=== PATIENT | male | born 1995 | race Caucasian/White ===

== ENCOUNTER 2017-04-07 01:29 | Emergency (ER) | payer OTHER ==
[~2017-04-07] VITALS: Ht 190.5 cm; Wt 65.5 kg
[2017-04-07 01:35] VITALS: Ht 190.5 cm; Wt 65.5 kg
[2017-04-07] MEDS: ONDANSETRON 4 MG INJ IV STA (02:51)
[2017-04-07] MEDS ORDERED: ONDA4TAB11 PO (04:41)
--- NOTE | 2017-04-07 04:48 | ERD ---
ER Documentation Chief Complaint Date/Time DATE: 04/07/17 TIME: 04:41 Chief Complaint BIBA x intoxication of hard drinks, vomiting, too HPI This 21-year-old male presents with intoxication after drinking hard liquor including rum. States that he has nausea and has vomited. Denies any pain. Did not fall or hit head. States he is otherwise healthy with no medical problems. ROS All systems reviewed and are negative except as per history of present illness. Medications Home Meds Active Scripts Ondansetron (Zofran Odt) 4 Mg Tab.rapdis, 4 MG PO Q6, #10 Prov:JOSIAH FAJARDO DO 04/07/17 Allergies Allergies: Coded Allergies: No Known Allergy (Unverified , 04/07/17) PMhx/Soc Medical and Surgical Hx: pt denies Medical Hx, pt denies Surgical Hx History of Surgery: No Anesthesia Reaction: No Hx Neurological Disorder: No Hx Respiratory Disorders: No Hx Cardiac Disorders: No Hx Psychiatric Problems: No Hx Miscellaneous Medical Probl: No Hx Alcohol Use: Yes Hx Substance Use: No Hx Tobacco Use: Yes (Vaping) Smoking Status: Current every day smoker Physical Exam Vitals Vital Signs Date Time Temp Pulse Resp B/P Pulse Ox O2 Delivery O2 Flow Rate FiO2 04/07/17 01:35 98.4 110 22 121/83 99 Physical Exam Const: [] Distress, appears uncomfortable, vomit on his shirt and arm. Head: Atraumatic Eyes: Normal Conjunctiva, EOMI, PERRLA ENT: Normal External Ears, Nose and Mouth. Resp: Clear to auscultation bilaterally Cardio: Regular rate and rhythm, no murmurs Abd: Soft, non tender, non distended. Normal bowel sounds Skin: No petechiae or rashes Ext: No cyanosis, or edema Neur: Awake and alert and oriented 3, no focal deficits, slurred speech, appears intoxicated, cranial nerves II through XII intact, no cerebellar deficits Psych: Normal Mood and Affect Results 24 hrs Current Medications Medications (Trade) Dose Ordered Sig/[place] Route PRN Reason Start Time Stop Time Status Last Admin Dose Admin Ondansetron HCl (Zofran Inj) 4 mg ONCE STAT IV 04/07/17 02:38 04/07/17 02:39 DC 04/07/17 02:51 Procedures/MDM Alcohol intoxication with vomiting. Patient was monitored for 3 hours. Parents came to see him early on. Is clinically sober and is able to ambulate around the emergency room. No further nausea and is taking p.o. No signs of trauma. Parents are picking him up and he is going to be discharged home in stable condition. Departure Diagnosis: Primary Impression: Alcoholic intoxication Condition: Stable Patient Instructions: Alcohol Intoxication Referrals: JOAQUÍN CHRISTIAN MD (PCP) Additional Instructions: Call your primary care doctor TOMORROW for an appointment during the next 2-3 days.See the doctor sooner or return here if your condition worsens before your appointment time. JOSIAH FAJARDO DO Apr 07, 2017 04:48
[2017-04-07 04:50] VITALS: BP 121/81; PULSE 105; RESP 20; TEMP 97.4
== END 2017-04-07 04:50 | disposition home or self-care (01) ==
LOC: E/R 01:29
DX: F10.129 Alcohol abuse with intoxication, unspecified (principal); F17.210 Nicotine dependence, cigarettes, uncomplicated; R11.2 Nausea with vomiting, unspecified
CPT/HCPCS: 96374; 99284; J2405